=== PATIENT | male | born 1950 | race Caucasian/White ===

== ENCOUNTER 2025-03-24 13:15 | Emergency (ER) | payer MEDICARE, OTHER, SELFPAY ==
[2025-03-24 13:16] VITALS: BP 116/69
--- NOTE | 2025-03-24 15:05 | ED.GENMED ---
History of Present Illness
General
Chief Complaint: Skin Problem
Source: patient
Exam Limitations: none
Time Seen by Provider: 03/24/25 14:28
Nursing documentation reviewed up to this point in time: agreed with
History of Present Illness
History of Present Illness:
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 In short patient had cancer in his jaw that
required reconstructive surgery 2 years ago. He then had subsequent dental/jaw infection that ultimately required revision of his reconstructive surgery in October 2024. Surgery was at [facility] with Dr. Bronson
(surgeon) and Dr. Rain (oncologist). After this revision he reportedly had another infection that required admission for IV antibiotics at [facility] in November. He had a drain in place for a period of time that was eventually removed. Patient says that
over a week ago he started to have some increased swelling, redness and started to have some drainage from wound on his jaw. He had another area opened up and started draining over the past few days. He was prescribed levofloxacin which she has
been taking x 5 days but symptoms worsening despite this which prompted him to come to the emergency room. He denies any fever or chills or any other complaints.
Review of Systems
Review of Systems
All Other Systems: ROS reviewed and negative except as documented in HPI and ROS
Constitutional: Denies fever or chills
EENT: Reports other (Redness, swelling, drainage along the jawline)
Respiratory: Denies trouble breathing
Cardiac: Denies chest pain
ABD/GI: Denies abdominal pain
Musculoskeletal: Denies neck pain or back pain
Neurological: Denies headache
Phy Exam
Physical Exam
Physical Exam:
General: Awake, alert; no acute distress
Head: Normocephalic, atraumatic
Face: Patient has swelling along the left upper neck/mandibular region with fluctuance; there is a small central wound about 3 cm distal to the angle of the mandible on the left with copious purulent drainage; he has some erythema but no swelling
along the right mandibular line with a small punctate opening no active drainage but dressing has some purulent drainage on it
Eyes: Conjunctiva normal, EOMI
Throat: Airway intact, handling secretions; no tongue elevation, essentially adentulous on the bottom row (only has 3 teeth left lower jaw), good dentition on the top, no obvious intraoral swelling or drainage
Neck: Trachea midline, supple without meningismus
Lungs: Breathing comfortably no distress
Heart: Regular rate
Extremities: Warm and well-perfused
Scores
Heart Failure Risk
Heart Failure Risk Score: Not Applicable
Heart Score for Chest Pain Patients
STEMI patient?: Not applicable
Withdrawal Assessment of Alcohol
Withdrawal Assessment Completed?: Not applicable
Course
Orders/Labs/Results
Orders:
Orders
03/24/25 14:55
CT Neck With Iv Contrast Urgent
Comment:
Reason For Exam: left jaw/neck swelling, drainage, pain
03/24/25 15:06
Ampicillin/Sulbactam 3 G [Unasyn] 3 gm 0.9% Sodium Chloride 100 ml [Nss] 100 ml IV NOW
03/24/25 15:12
Complete Blood Count/With Diff Urgent
Comprehensive Metabolic Panel Urgent
03/24/25 15:37
Blood Culture Q30M
STEFAN Source: Blood/Venous
Specimen Description:
Blood Culture Q30M
STEFAN Source: Blood/Venous
Specimen Description:
Wound Culture [Wound/Abscess/Other Culture] Urgent
STEFAN Source: Abscess
Specimen Description:
Date Specimen was Collected: 03/24/25
Time Specimen was Collected: 15:34
Comment: left mandible
Abnormal Lab Results
03/24/25
15:12
RBC 4.12 L 10^6/uL
(4.70-6.10)
Hgb 12.9 L g/dL
(13.0-18.0)
Hct 37.7 L %
(39.0-52.0)
MCH 31.3 H pg
(27.0-31.0)
Abs Immat Gran (auto) 0.1 H 10^3/uL
(0-0.05)
Absolute Neuts (auto) 8.0 H 10^3/uL
(1.4-6.5)
Absolute Lymphs (auto) 1.0 L 10^3/uL
(1.2-3.4)
Absolute Monos (auto) 0.8 H 10^3/uL
(0.1-0.6)
Neutrophils % 80.6 H %
(42.2-75.2)
Lymphocytes % 10.4 L %
(20.5-51.1)
03/24/25 15:12
03/24/25 15:12
Vital Signs
Initial and Last Documented VS:
Initial Vital Signs
Temp Pulse Resp BP Pulse Ox
36.8 C 69 16 116/69 99
03/24/25 13:16 03/24/25 13:16 03/24/25 13:16 03/24/25 13:16 03/24/25 13:16
Last Documented Vital Signs
Temp Pulse Resp BP Pulse Ox
37.0 C 71 18 127/78 99
03/24/25 16:14 03/24/25 16:14 03/24/25 16:14 03/24/25 16:14 03/24/25 16:14
MDM/Problems Addressed
Differential Diagnosis Includes:
Abscess�dental, neck, facial
MDM/Problems Addressed:
74-year-old male with complicated surgical history in the jaw presents with swelling, redness, drainage along the jawline/upper neck. There is 1 area of erythema that has opened up and has copious active drainage on the left side; he also has some
drainage on the dressing on the right side. Will plan to check labs, CT. Will discuss with surgeon at [facility] has been on 5 days of oral antibiotics and has worsening symptoms and drainage despite this we will plan to treat with IV antibiotics and
he will likely need transfer for continued treatment and consultation with his surgeon.
Labs reviewed: CBC shows marginal anemia no other clinically significant abnormalities. CMP no clinically significant abnormality. Call placed to [facility] transfer center discussed with ENT Dr. Jackson�plan for likely ED to ED transfer pending CT
results.
CT shows severe soft tissue swelling and subcutaneous edema suspect acute cellulitis surrounding 1.2 cm abscess left side of the mandibular body; probable 8 mm abscess posterior to the left mandibular body; postoperative changes. Will discuss with
surgical team at [facility] and arrange for transfer.
Discussed with ENT Dr. Jackson as well as ER physician Dr. Mcgraw at [facility]. Patient accepted for transfer. Monitor pending transport.
Chronic conditions affecting care:
Oral cancer
*Radiology
Radiology exam reviewed: radiology read reviewed
*Pulse Oximetry
Patient hypoxic: no
*Critical Care Note
Total Time (30-74mins, 75-104mins- exclusive of procedures): Not Applicable
Data Reviewed
Source: patient and spouse
Patient Management
Discussion with other providers: [employer] (Discussed with surgeon at [facility])
Escalation/DeEscalation of care consider admission/obs:
Admission indicated�transfer
ED Attending Note
-
Portions of this chart may have been created with voice recognition software.� Occasional wrong word or��sound alike� substitutions may have occurred due to the inherent limitations of voice recognition software.
Discharge Plan
Departure
Patient Disposition: Acute Care Hospital
Date of Disposition: 03/24/25
Time of Disposition: 15:34
Discharge Problem:
Acute abscess of face
Prescriptions:
No Action
levofloxacin 500 mg Tablet
500 mg PO DAILY
Rx Instructions:
for 10 days starting 03/18/25
ascorbic acid (vitamin C) [Vitamin C] 1,000 mg Tablet
2,000 mg PO DAILY
ibuprofen 800 mg Tablet
800 mg PO Q8HPRN PRN (Reason: mild pain)
Referrals:
Kilo Bocanegra MD [Family Provider] -
Hospital Transfer
Other hospital: [facility]
I certify that the patient requires transfer: Yes
Discussed case with accepting physician: Dr. Carmen Mcgraw
Reason for transfer: availability of service and continuity of care PCP
Interventions
Interventions:
*Risk Screen - Suicide Last Done: 03/24/25 13:16
*General Assessment Last Done: 03/24/25 13:16
*Neglect/Abuse Screening Last Done: 03/24/25 13:16
*ED COVID-19 Vaccine History Last Done: 03/24/25 13:16
ED-Skin Assessment Last Done: 03/24/25 13:58
Discharge Date and Time
Print Language: [place]
[2025-03-24 15:25] LABS: % Basophils 0.4 % (0-2); % Eosinophils 0.4 % (0-6); % Immature Granulocytes 0.5 % (0-0.5); % Lymphocytes 10.4 % (20.5-51.1); % Monocytes 7.7 % (1.7-9.3); % Neutrophils 80.6 % (42.2-75.2); Absolute Immature Granulocytes 0.1 10^3/uL (0-0.05); Absolute Monocytes 0.8 10^3/uL (0.1-0.6); Hematocrit 37.7 % (39.0-52.0); Hemoglobin 12.9 g/dL (13.0-18.0); Mean Corp Hgb Conc. 34.2 g/dL (33.0-37.0); Mean Corpuscular Hgb 31.3 pg (27.0-31.0); Mean Corpuscular Volume 91.5 fL (80.0-94.0); Mean Platelet Volume 8.4 fL (7.4-10.4); Nucleated Red Blood Cells % 0 % (-); Platelet Count 180 10^3/uL (130-400); Red Blood Cell Count 4.12 10^6/uL (4.70-6.10); Red Cell Dist. Width 13.4 % (11.5-14.5)
[2025-03-24 15:45] LABS: ALT (SGPT) 17 U/L (0-50); AST (SGOT) 23 U/L (17-59); Albumin 3.9 g/dl (3.5-5.0); Alkaline Phosphatase 65 U/L (38-126); Blood Urea Nitrogen 18 mg/dl (9-20); Calcium 9.2 mg/dl (8.4-10.2); Carbon Dioxide 28 mmol/L (22-30); Chloride 101 mmol/L (98-107); Glucose 98 mg/dl (70-99); Potassium 4.5 mmol/L (3.5-5.1); Sodium 136 mmol/L (135-145); Total Bilirubin 1.1 mg/dl (0.2-1.3); Total Protein 6.9 g/dl (6.3-8.2); eGFR > 60.00
[2025-03-24] MEDS: UNASYN IV (16:13)
[2025-03-24 16:14] VITALS: BP 127/78
[2025-03-24 16:17] VITALS: BMI 29.5
== END 2025-03-24 18:00 | disposition short-term general hospital (02) ==
LOC: EMR 13:15
PROVIDERS: EMERGENCY PHYSICIAN Emergency Medicine; FAMILY PHYSICIAN Family Medicine
DX: L02.01 Cutaneous abscess of face (principal); C06.9 Malignant neoplasm of mouth, unspecified
CPT/HCPCS: 99284; 96360; 70491; 80053; 85025; 87040; 87070; 87205; Q9967